=== PATIENT | female | born 1980 | race Caucasian/White ===

== ENCOUNTER 2019-10-21 19:55 | Inpatient (IN) | payer BC ==
[~2019-10-21] VITALS: Ht 160 cm; Wt 81.8 kg
[2019-10-21] MEDS ORDERED: PRENATAL TABLE1 EAC2 PO (20:17)
[2019-10-21] MEDS ORDERED: PANT20 PO (20:17)
[2019-10-21 20:44] LABS: BASOPHILS ABSOLUTE AUTO 0.01 K/mm3 (0.00-0.23); BASOPHILS PERCENT AUTO 0 % (0-2); EOSINOPHILS ABSOLUTE AUTO 0.07 K/mm3 (0.00-0.68); EOSINOPHILS PERCENT AUTO 1 % (0-6); Hematocrit 35.5 % (33.0-51.0); Hemoglobin 11.7 g/dL (11.5-16.0); IMMATURE GRAN ABSOLUTE AUTO 0.05 K/mm3 (0.00-0.10); IMMATURE GRAN PERCENT AUTO 1 % (0-1); LYMPHOCYTES ABSOLUTE AUTO 0.65 K/mm3 (0.84-5.20); LYMPHOCYTES PERCENT AUTO 10 % (21-46); MONOCYTES ABSOLUTE AUTO 0.72 K/mm3 (0.16-1.47); MONOCYTES PERCENT AUTO 11 % (4-13); Mean Corpuscular HGB 31.5 pg (26.0-34.0); Mean Corpuscular Volume 95 fL (80-100); Mean Platelet Volume 11.4 fL (9.1-12.4); NEUTROPHILS ABSOLUTE AUTO 4.89 K/mm3 (1.96-9.15); NEUTROPHILS PERCENT AUTO 76 % (41-73); Platelet Count 142 K/mm3 (150-400); RDW Coefficient Variation 15.2 % (11.7-14.2); RDW Standard Deviation 53.2 fL (35.1-46.3); Red Blood Cell Count 3.72 M/mm3 (3.80-5.20); White Blood Cell Count 6.39 K/mm3 (4.00-11.30)
--- NOTE | 2019-10-22 18:27 | NUR ---
CONSULT. BABY IS LESS THAN 12 HOURS OLD AND MOM IS HAVING PROBLEMS GETTING HIM TO LATCH. TRIED TO COORDINATE HIS SUCK ON MY FINGER, HOLDING TONGUE FAR BACK IN MOUTH, COORDINATES BRIEFLY WITH MINIMAL SUCTION. MOM ABLE TO SELF EBM WELL AND IS HANDLING HIM WELL. INSTRUCT IN CHANGES TO EXPECT DURING THE FIRST WEEK WITH FEEDINGS AND WITH BABY AND REFERRED TO [facility] AND [facility] FOR PHOTOS AND INFORMATION. QUESTIONS ANSWERED.
[2019-10-23 05:26] LABS: BASOPHILS ABSOLUTE AUTO 0.01 K/mm3 (0.00-0.23); BASOPHILS PERCENT AUTO 0 % (0-2); EOSINOPHILS PERCENT AUTO 2 % (0-6); Hematocrit 32.6 % (33.0-51.0); Hemoglobin 10.8 g/dL (11.5-16.0); IMMATURE GRAN ABSOLUTE AUTO 0.05 K/mm3 (0.00-0.10); IMMATURE GRAN PERCENT AUTO 1 % (0-1); LYMPHOCYTES ABSOLUTE AUTO 0.69 K/mm3 (0.84-5.20); LYMPHOCYTES PERCENT AUTO 11 % (21-46); MONOCYTES PERCENT AUTO 10 % (4-13); Mean Corpuscular HGB 31.3 pg (26.0-34.0); Mean Corpuscular HGB Conc 33.1 g/dL (31.5-36.5); Mean Corpuscular Volume 95 fL (80-100); Mean Platelet Volume 11.5 fL (9.1-12.4); NEUTROPHILS ABSOLUTE AUTO 4.73 K/mm3 (1.96-9.15); NEUTROPHILS PERCENT AUTO 77 % (41-73); Platelet Count 120 K/mm3 (150-400); RDW Coefficient Variation 15.1 % (11.7-14.2); RDW Standard Deviation 52.3 fL (35.1-46.3); Red Blood Cell Count 3.45 M/mm3 (3.80-5.20); White Blood Cell Count 6.18 K/mm3 (4.00-11.30)
[2019-10-23] MEDS ORDERED: IBUP800 PO (13:21)
--- NOTE | 2019-10-23 20:32 | NUR ---
DC NOTE. VSS. PAIN WELL CONTROLLED. CARING FOR NB AND SELF INDEPENDENTLY. DC INSTRUCTIONS GIVEN, NO QUESTIONS AT THIS TIME. PT AMBULATED OFF UNIT W/ NO ASSISTANCE.
== END 2019-10-23 20:05 | disposition home or self-care (01) | DRG 807 ==
LOC: BC 19:55
PROVIDERS: ADMIT Nurse Practitioner Obstetrics & Gynecology
PROC: 3E0P7VZ Introduction of Hormone into Female Reproductive, Via Natural or Artificial Opening (ICD-10-PCS; 2019-10-21)
PROC: 10E0XZZ Delivery of Products of Conception, External Approach (ICD-10-PCS; principal; 2019-10-22)
PROC: 0HQ9XZZ Repair Perineum Skin, External Approach (ICD-10-PCS; 2019-10-22)
PROC: 10907ZC Drainage of Amniotic Fluid, Therapeutic from Products of Conception, Via Natural or Artificial Opening (ICD-10-PCS; 2019-10-22)
PROC: 3E033VJ Introduction of Other Hormone into Peripheral Vein, Percutaneous Approach (ICD-10-PCS; 2019-10-22)
PROC: 3E0R3BZ Introduction of Anesthetic Agent into Spinal Canal, Percutaneous Approach (ICD-10-PCS; 2019-10-22)
DX: O69.81X0 Labor and delivery complicated by cord around neck, without compression, not applicable or unspecified (principal); Z37.0 Single live birth; O70.0 First degree perineal laceration during delivery; Z3A.39 39 weeks gestation of pregnancy
CPT/HCPCS: 36415; 51702; 85025; 86900; 86901; J1885; J2001; J2210; J2590; J3010; J7120

== ENCOUNTER 2023-05-27 12:18 | Observation (INO) | payer OTHER ==
[2023-05-27] VITALS (13 sets, daily range): BP systolic 100–127; BP diastolic 54–92
[~2023-05-27] VITALS: Ht 160 cm; Wt 65.8 kg
[~2023-05-27 12:18] MED LIST: IBUP800 PO; PANT20 PO; PRENATAL TABLE1 EAC2 PO
[2023-05-27 13:06] LABS: BASOPHILS ABSOLUTE AUTO 0.03 K/mm3 (0.00-0.23); BASOPHILS PERCENT AUTO 0 % (0-2); EOSINOPHILS ABSOLUTE AUTO 0.03 K/mm3 (0.00-0.68); EOSINOPHILS PERCENT AUTO 0 % (0-6); Hematocrit 38.3 % (33.0-51.0); IMMATURE GRAN ABSOLUTE AUTO 0.01 K/mm3 (0.00-0.10); IMMATURE GRAN PERCENT AUTO 0 % (0-1); LYMPHOCYTES PERCENT AUTO 8 % (21-46); MONOCYTES ABSOLUTE AUTO 0.53 K/mm3 (0.16-1.47); MONOCYTES PERCENT AUTO 6 % (4-13); Mean Corpuscular HGB 30.4 pg (26.0-34.0); Mean Corpuscular HGB Conc 33.9 g/dL (31.5-36.5); Mean Corpuscular Volume 90 fL (80-100); Mean Platelet Volume 10.3 fL (9.1-12.4); NEUTROPHILS ABSOLUTE AUTO 7.84 K/mm3 (1.96-9.15); NEUTROPHILS PERCENT AUTO 86 % (41-73); Platelet Count 246 K/mm3 (150-400); RDW Coefficient Variation 12.4 % (11.7-14.2); RDW Standard Deviation 40.6 fL (35.1-46.3); Red Blood Cell Count 4.28 M/mm3 (3.80-5.20); White Blood Cell Count 9.14 K/mm3 (4.00-11.30)
[2023-05-27 13:07] LABS: Source, Urine Clean Catch
[2023-05-27 13:16] LABS: Albumin/Globulin Ratio 1.3 (0.8-1.8); Bilirubin, Total 0.8 mg/dL (0.1-1.0); Bun/Creatinine Ratio 16.4 (12.0-20.0); Calcium, Blood 8.9 mg/dL (8.5-10.1); Creatinine, Blood 0.79 mg/dL (0.40-1.00); Potassium, Blood 4.3 mmol/L (3.5-5.5)
[2023-05-27 13:24] LABS: Appearance, Urine Clear (Clear); Bilirubin, Urine Neg (Neg); Blood, Urine Neg (Neg); Color, Urine Yellow (P-Yellow); Glucose Qualitative, Urine Neg (Neg); Ketones, Urine Neg (Neg); Leukocyte Esterase, Urine 1+ (Neg); Nitrite, Urine Neg (Neg); Protein, Urine Neg (Neg); Urobilinogen, Urine NORM (Normal)
[2023-05-27 14:02] LABS: Amorphous Light (0-Heavy); Bacteria Rare /hpf; Mucus Mod (0-Heavy); Red Blood Cells, Urine Not Seen /hpf (0-2); Squamous Epithelial Cells Few /hpf (Few)
--- NOTE | 2023-05-27 15:50 | NUR ---
History, Chart, Medications and Allergies reviewed before start of procedure. Lungs clear T/O to Auscultation. Patient confirms NPO status and agrees with scheduled surgery. Pre-Op teaching done. Pt verbalizes understanding.
--- NOTE | 2023-05-27 17:58 | NUR ---
ARRIVED FROM PACU VIA SHERIRRONNIE, AWAKE, A&OX4, DENIES ANY NAUSEA, C/O PAIN ON SHOULDERS, LUNGS CLEAR T/O, HRR, CARLOS AT 47-50BPM, PT'S STATES PT'S NORMAL HR IS IN THE 50'S, ABD LAP INCISIONS W/ GAUZE AND OPSITE X3 C/D/I, ICE CHIPS/WATER GIVEN, MONITOR VS AND ANY CHANGES, REPORT TO NOC SHIFT RN.
[2023-05-28 05:19] VITALS: BP 101/52
--- NOTE | 2023-05-28 06:43 | NUR ---
POD 1 S/P LAP APPY. PT VSS T/O NIGHT. ABD SOFT, TENDER TO PALP, UMBILICUS W/SS SHADOWING, OTHER DRESSINGS CDI. PAIN MGD W/TYLENOL AND TORADOL W/REP RELIEF. PT C/O HEADACHE THIS AM, DECLINED ADDITIONAL PAIN MEDS. PT MARIA FERNANDA PO, DENIED N/V, REP NO FLATUS YET, IS VOIDING URINE W/O DIFFICULTY. PT UP OOB W/SBA, MARIA FERNANDA WELL.
[2023-05-28 07:38] VITALS: BP 94/52
[2023-05-28] MEDS ORDERED: HYDR1TAB94 PO (10:52)
--- NOTE | 2023-05-28 12:45 | NUR ---
FIRE SAFETY FIRE SAFETY ASSESSMENT AND EDUCATION DONE, VERBALIZED UNDERSTANDING, PT DENIES HX OF SMOKING, NO IGNITION SOURCES IDENTIFIED, PT DENIES HAVING ANY IGNITION SOURCES IN ROOM.
--- NOTE | 2023-05-28 14:46 | NUR ---
PT HAS AMBULATED DOWN THE HALLS TODAY, TOLERATED WELL, TOLERATED REGULAR DIET WELL, REPORTS HAVING ADEQUATE PAIN CONTROL WITH [facility], DC INSTRUCTIONS GIVEN, VERBALIZED UNDERSTANDING.
== END 2023-05-28 14:45 | disposition home or self-care (01) ==
LOC: ER 12:18 → SURS 12:19
PROVIDERS: Student in an Organized Health Care Education/Training Program; ADMIT Surgery
PROC: 0DTJ4ZZ Resection of Appendix, Percutaneous Endoscopic Approach (ICD-10-PCS; principal; 2023-05-27 16:00)
DX: K35.80 Unspecified acute appendicitis (principal)
CPT/HCPCS: 74177; 80053; 81001; 81025; 83690; 85025; 96361; 96365-59; 96375; 96376; 99284-25; A9270; C9113; G0378; J0295; J0330; J1100; J1170; J1650; J1885; J2250; J2405; J2704; J3010; J7120; Q9967

== ENCOUNTER 2023-06-24 09:57 | Inpatient (IN) | payer OTHER ==
[~2023-06-24] VITALS: Ht 162.6 cm; Wt 71.0 kg
[~2023-06-24 09:57] MED LIST changes: +HYDR1TAB94 PO
[2023-06-25] VITALS (21 sets, daily range): BP systolic 101–122; BP diastolic 54–68
--- NOTE | 2023-06-25 08:04 | NUR ---
Ambulatory in Day Surgery. Pre-Op teaching done. Pt verbalizes understanding. Patient confirms NPO status and agrees with scheduled surgery. History, Chart, Medications and Allergies reviewed before start of procedure. Patient reports completing Chlorhexadine shower X2 prior to admission to hospital. Surgical site prepped with 2% Chlorhexidine cloth wipe. Lungs clear T/O to Auscultation.
--- NOTE | 2023-06-25 12:40 | NUR ---
ARRIVAL TO UNIT VIA GOURNEY; SLID TO HOSPT BED EASILY. ASSESSMENT CHARTED. PLEASANT & ORIENTED. DENIES NAUSEA BUT REPORTS BEING NERVOUS TO TRY MUCH. ICE CHIPS GIVEN; WILL ALLOW SIPS IF NO NAUSEA. DENIES PAIN.
[2023-06-25 13:03] LABS: Hematocrit 34.7 % (33.0-51.0); Hemoglobin 11.7 g/dL (11.5-16.0)
--- NOTE | 2023-06-25 18:25 | NUR ---
SHIFT SUMMARY PT HAS BEEN DROWSY POST OP; SLEEPING MOSTLY, BUT AWAKENS EASILY TO NAME. MORE ALERT WITHIN THE LAST HOUR & HAVING SMALL CONVERSATIONS. STATES ABD PAIN IS MINIMAL TO NONE & ONLY C/O SHOULDER PAINS FROM GAS. K-PAD GIVEN & REPORTS SOME RELIEF. STATES SHE WANTS TO HOLD OFF ON TYLENOL FOR NOW UNTIL SHE FEELS LIKE DRINKING MORE LQ's. HASN'T BEEN OOB BUT KNOWS THE BENEFITS & WILL BE WILLING.
[2023-06-26 04:17] VITALS: BP 106/56
[2023-06-26 05:02] LABS: BASOPHILS ABSOLUTE AUTO 0.01 K/mm3 (0.00-0.23); BASOPHILS PERCENT AUTO 0 % (0-2); EOSINOPHILS ABSOLUTE AUTO 0.02 K/mm3 (0.00-0.68); EOSINOPHILS PERCENT AUTO 0 % (0-6); Hematocrit 31.8 % (33.0-51.0); Hemoglobin 10.5 g/dL (11.5-16.0); IMMATURE GRAN ABSOLUTE AUTO 0.01 K/mm3 (0.00-0.10); IMMATURE GRAN PERCENT AUTO 0 % (0-1); LYMPHOCYTES ABSOLUTE AUTO 0.75 K/mm3 (0.84-5.20); LYMPHOCYTES PERCENT AUTO 13 % (21-46); MONOCYTES ABSOLUTE AUTO 0.66 K/mm3 (0.16-1.47); MONOCYTES PERCENT AUTO 11 % (4-13); Mean Corpuscular HGB 30.6 pg (26.0-34.0); Mean Corpuscular Volume 93 fL (80-100); Mean Platelet Volume 10.5 fL (9.1-12.4); NEUTROPHILS ABSOLUTE AUTO 4.55 K/mm3 (1.96-9.15); NEUTROPHILS PERCENT AUTO 76 % (41-73); Platelet Count 181 K/mm3 (150-400); RDW Coefficient Variation 12.2 % (11.7-14.2); RDW Standard Deviation 41.5 fL (35.1-46.3); Red Blood Cell Count 3.43 M/mm3 (3.80-5.20)
[2023-06-26 06:13] LABS: Bun/Creatinine Ratio 7.1 (12.0-20.0); Calcium, Blood 8.2 mg/dL (8.5-10.1); Creatinine, Blood 0.7 mg/dL (0.40-1.00); Magnesium, Blood 1.8 mg/dL (1.6-2.4); Phosphorus, Blood 2.9 mg/dL (2.5-4.9); Potassium, Blood 4.1 mmol/L (3.5-5.5)
--- NOTE | 2023-06-26 07:21 | NUR ---
POD 1 S/P HEMICOLECTOMY. PT VSS T/O NIGHT. INCISIONS CDI. 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 PT MARIA FERNANDA SIPS CL PO, DENIED N/V, BT HYPO, PT REP NO FLATUS YET. IVF CONT PER ORDERS. HENRY DRNG CLEAR YELLOW URINE. IVF CONT PER ORDERS.
[2023-06-26 07:50] VITALS: BP 105/66
--- NOTE | 2023-06-26 13:30 | NUR ---
"Spiritual Care | Pt. Request Pt. is awake in bed and welcomes my visit. Spouse and friends are present. Pt. is pleasant. Facilitate a short life review and establish rapport. Spouse is an employee of this hospital. Pt. displays evidenc of being enganed, aware, and confidant in her recovery. Family identifies as LDS and welcomes prayer. Prayed for Pt. Pt. and spouse verbalize gratitude for the spiritual care visit."
--- NOTE | 2023-06-26 14:33 | NUR ---
PT UPDATE TOLERATING CLEAR LQ's. PASSING GAS & LIQUID BM x 2. VOIDING EASILY. AMBULATING HALLWAY x 2 (GOAL OF 3 TIMES TODAY). PAIN MANAGED w/ HEAD PACKAGER & SCHED TYLENOL. DISCUSSED w/ DR PEREZ & PLANS MADE TO ADV DIET TO FULL LQ.
[2023-06-26 15:34] VITALS: BP 101/59
--- NOTE | 2023-06-26 17:45 | NUR ---
SHIFT SUMMARY TOLERATING FULL LQ's. PAIN WELL CONTROLLED. PASSING GAS & LIQUID STOOL. PLEASANT & COOPERATIVE.
[2023-06-26 20:19] VITALS: BP 120/56
[2023-06-26 23:08] VITALS: BP 96/59
[2023-06-27 05:00] VITALS: BP 107/52
--- NOTE | 2023-06-27 05:20 | NUR ---
SHIFT SUMMARY POD1 RIGHT HEMICOLECTOMY. X5 INCISIONS ARE C/D/I. VSS. PT SLEPT ON AND OFF T/O THE NIGHT. PT UTILIZED MANAGER CORPORATE RESPONSIBILITY T/O THE NIGHT AND TYLENOL FOR PAIN CONTOL. PT C/O A HEADACHE MORE THAN ABD PAIN. PT VOIDING W/O DIFFICULTY AND PASSING LOOSE STOOLS. TOLLERATING PO INTAKE. PT C/O MILD NAUSEA THIS AM WITH AMBULATION, UNDECIDIED IF SHE NEEDS NAUSEA MEDICATION YET. NO EMESIS NOTED. PLAN TO ADVANCE PTS DIET THIS AM AND POSSIBLY D/C HOME, NO IGNITION SOURCE NOTED
[2023-06-27 05:26] LABS: BASOPHILS ABSOLUTE AUTO 0.02 K/mm3 (0.00-0.23); BASOPHILS PERCENT AUTO 0 % (0-2); EOSINOPHILS ABSOLUTE AUTO 0.23 K/mm3 (0.00-0.68); EOSINOPHILS PERCENT AUTO 5 % (0-6); Hematocrit 31.2 % (33.0-51.0); Hemoglobin 10.4 g/dL (11.5-16.0); IMMATURE GRAN ABSOLUTE AUTO 0.01 K/mm3 (0.00-0.10); IMMATURE GRAN PERCENT AUTO 0 % (0-1); LYMPHOCYTES ABSOLUTE AUTO 0.87 K/mm3 (0.84-5.20); LYMPHOCYTES PERCENT AUTO 17 % (21-46); MONOCYTES ABSOLUTE AUTO 0.51 K/mm3 (0.16-1.47); MONOCYTES PERCENT AUTO 10 % (4-13); Mean Corpuscular HGB 31.5 pg (26.0-34.0); Mean Corpuscular HGB Conc 33.3 g/dL (31.5-36.5); Mean Corpuscular Volume 95 fL (80-100); Mean Platelet Volume 10.4 fL (9.1-12.4); NEUTROPHILS ABSOLUTE AUTO 3.46 K/mm3 (1.96-9.15); NEUTROPHILS PERCENT AUTO 68 % (41-73); Platelet Count 163 K/mm3 (150-400); RDW Coefficient Variation 12.3 % (11.7-14.2); RDW Standard Deviation 42.9 fL (35.1-46.3)
[2023-06-27 05:42] LABS: Bun/Creatinine Ratio 6.7 (12.0-20.0); Calcium, Blood 7.9 mg/dL (8.5-10.1); Creatinine, Blood 0.74 mg/dL (0.40-1.00)
[2023-06-27 07:15] VITALS: BP 105/51
[2023-06-27] MEDS ORDERED: Acetaminophen650 M1 PO (16:28)
[2023-06-27] MEDS ORDERED: IBUP600 PO (16:30)
--- NOTE | 2023-06-27 18:03 | NUR ---
DISCHARGE PT DISCHARGED HOME FROM UNIT AT APROX 1704. PT AND GIVEN WRITTEN AND VERBAL DC INSTRUCTIONS. PT VERBALIZED UNDERSTANDING. IV REMOVED, TOLERATED WELL. WC TO CAR.
== END 2023-06-27 17:05 | disposition home or self-care (01) | DRG 331 ==
LOC: SURS 06-25 06:13 → PRE IP 06-25 07:30 → SURS 06-25 12:38
PROVIDERS: ADMIT Surgery
PROC: 8E0W4CZ Robotic Assisted Procedure of Trunk Region, Percutaneous Endoscopic Approach (ICD-10-PCS; 2023-06-25)
PROC: 0DTF4ZZ Resection of Right Large Intestine, Percutaneous Endoscopic Approach (ICD-10-PCS; principal; 2023-06-25 07:30)
DX: C18.1 Malignant neoplasm of appendix (principal); Z90.49 Acquired absence of other specified parts of digestive tract; Z98.890 Other specified postprocedural states
CPT/HCPCS: 36415; 80048; 83735; 84100; 85014; 85018; 85025; 86850; 86900; 86901; A9270; J0690; J1100; J1644; J1650; J2250; J2405; J2704; J3010; J7120

== ENCOUNTER 2023-06-24 10:24 | Day surgery (SDC) | payer OTHER ==
[2023-06-24] VITALS (23 sets, daily range): BP systolic 78–130; BP diastolic 48–76
[~2023-06-24] VITALS: Ht 167.6 cm; Wt 70.4 kg
--- NOTE | 2023-06-24 12:06 | NUR ---
06/24/23 1206 Noemy Gomes HISTORY, CHART, MEDICATIONS AND ALLERGIES REVIEWED BEFORE START OF PROCEDURE. PATIENT CONFIRMS NPO STATUS AND AGREES WITH SCHEDULED PROCEDURE. 3-LEAD EKG REVIEWED WITH PHYSICIAN PRIOR TO START OF PROCEDURE. MONITOR INTACT WITH CONTINUOUS PULSE OXIMETRY,CAPNOGRAPHY, 3-LEAD EKG, INTERMITTENT BP. SUPPLEMENTAL O2 TO BE TITRATED THROUGHOUT PROCEDURE TO MAINTAIN O2 SATURATION ABOVE 90%. PATIENT DETERMINED TO BE ASA APPROPRIATE FOR PROPOFOL SEDATION PRIOR TO START OF PROCEDURE BY DR. PEREZ.
--- NOTE | 2023-06-24 13:23 | NUR ---
Discharge instructions reviewed with patient. Patient verbalizes understanding. Copy given to patient to take home. Patient States Post-Procedure ride home has been arranged. Discharged via wheelchair to private car for ride home.
== END 2023-06-24 13:17 | disposition home or self-care (01) ==
LOC: ORSCMMR 10:24 → ORD 12:00 → ORSCMMR 12:00
PROVIDERS: Surgery
PROC: 0DBM8ZX Excision of Descending Colon, Via Natural or Artificial Opening Endoscopic, Diagnostic (ICD-10-PCS; principal; 2023-06-24 12:00)
DX: C18.1 Malignant neoplasm of appendix (principal); D12.4 Benign neoplasm of descending colon; K64.8 Other hemorrhoids; K64.4 Residual hemorrhoidal skin tags; R97.1 Elevated cancer antigen 125 [CA 125]; R97.8 Other abnormal tumor markers; R97.0 Elevated carcinoembryonic antigen [CEA]
CPT/HCPCS: 88305; J2704; J7120

== ENCOUNTER 2023-07-29 10:30 | Inpatient (IN) | payer OTHER ==
[~2023-07-29] VITALS: Wt 67.5 kg
[~2023-07-29 10:30] MED LIST changes: +Acetaminophen650 M1 PO; +IBUP600 PO
[2023-07-29 10:43] VITALS: BP 112/66
[2023-07-29 11:43] LABS: Hematocrit 35.8 % (33.0-51.0); Hemoglobin 12.4 g/dL (11.5-16.0); Mean Corpuscular HGB 30.4 pg (26.0-34.0); Mean Corpuscular HGB Conc 34.6 g/dL (31.5-36.5); Mean Corpuscular Volume 88 fL (80-100); Mean Platelet Volume 10.1 fL (9.1-12.4); Platelet Count 218 K/mm3 (150-400); RDW Coefficient Variation 12.1 % (11.7-14.2); RDW Standard Deviation 38.6 fL (35.1-46.3); Red Blood Cell Count 4.08 M/mm3 (3.80-5.20); White Blood Cell Count 8.02 K/mm3 (4.00-11.30)
[2023-07-29 12:09] LABS: BAND PERCENT MAN 20 % (0-8); BASOPHILS PERCENT MAN 0 % (0-2); EOSINOPHILS PERCENT MAN 0 % (0-6); LYMPHOCYTES ABSOLUTE MAN 0.88 K/mm3 (0.84-5.20); LYMPHOCYTES PERCENT MAN 11 % (21-46); MONOCYTES ABSOLUTE MAN 0.32 K/mm3 (0.16-1.47); MONOCYTES PERCENT MAN 4 % (4-13); NEUTROPHILS ABSOLUTE MAN 6.81 K/mm3 (1.96-9.15); SEG NEUTROPHILS PERCENT MAN 65 % (41-73); TOTAL CELLS COUNTED 100
[2023-07-29 12:11] LABS: Albumin, Blood 2.9 g/dL (3.4-5.0); Bilirubin, Total 0.8 mg/dL (0.1-1.0); Bun/Creatinine Ratio 13.8 (12.0-20.0); Calcium, Blood 8.2 mg/dL (8.5-10.1); Creatinine, Blood 0.8 mg/dL (0.40-1.00); Globulin, Blood 2.9 g/dL (2.2-4.0); Phosphorus, Blood 3.5 mg/dL (2.5-4.9); Potassium, Blood 3.4 mmol/L (3.5-5.5); Total Protein, Blood 5.8 g/dL (6.4-8.2)
[2023-07-29 14:36] VITALS: BP 110/50
[2023-07-29 17:45] LABS: Adenovirus F 40/41 Not Detected (NOT DETECT); Astrovirus Not Detected (NOT DETECT); Campylobacter Sp Not Detected (NOT DETECT); Cryptosporidium Not Detected (NOT DETECT); Cyclospora Cayetanensis Not Detected (NOT DETECT); E. Coli O157 Not Detected (NOT DETECT); Entamoeba Histolytica Not Detected (NOT DETECT); Enteroaggregative E. coli-EAEC Not Detected (NOT DETECT); Enteropathogenic E. coli-EPEC Not Detected (NOT DETECT); Enterotoxigenic E. coli-ETEC Not Detected (NOT DETECT); Giardia Lamblia Not Detected (NOT DETECT); Norovirus GI/GII Not Detected (NOT DETECT); Plesiomonas Shigelloides Not Detected (NOT DETECT); Rotavirus A Not Detected (NOT DETECT); Salmonella Sp Not Detected (NOT DETECT); Sapovirus Not Detected (NOT DETECT); Shiga Toxin-prod E. coli-STEC Not Detected (NOT DETECT); Shigella/Enteroin E. coli-EIEC Not Detected (NOT DETECT); Vibrio Cholerae Not Detected (NOT DETECT); Vibrio Sp Not Detected (NOT DETECT); Yersinia Enterocolitica Not Detected (NOT DETECT)
--- NOTE | 2023-07-29 19:01 | NUR ---
SHIFT SUMMARY PT HAS SHOWN IMPROVEMENT SINCE ADMIT. PT REPORTS LESS LOOSE STOOLS SINCE FLUID BOLUS. FLUIDS RUNNING 125/HR. PT TOLERATING SM CLEAR LIQUIDS WITH NO N/V. ORAL ABX.
[2023-07-29 19:47] VITALS: BP 107/63
[2023-07-30 02:35] VITALS: BP 100/55
[2023-07-30 07:30] VITALS: BP 109/56
--- NOTE | 2023-07-30 07:35 | NUR ---
PT VSS T/O NIGHT. PT MARIA FERNANDA SMALL AMT CL PO, REP INC ABD CRAMPING AFTER EATING JELLO. PT ALSO REPORTS NAUSEA R/T ABX, ZOFRAN GIVEN W/REPORTED RELIEF. PT REP INC IN BM SINCE APPX MIDNIGHT, REP APPX 10 LIQ BM. IVF CONT PER ORDERS. DR PEREZ UPDATED THIS AM. PT AMB INDEP IN ROOM, MARIA FERNANDA WELL, DENIES DIZZINESS WHEN UP.
--- NOTE | 2023-07-30 15:01 | NUR ---
PT C/O PAIN IN EPIGASTRIC AREA RADIATING THROUGH TO HER BACK. STATES IT COMES AND GOES. DOES REPORT SHE WAS DOING LUNGES IN THE ROOM PRIOR TO RN ENTERING ROOM. VSS 105/51, HR 56, RR 14. MD NOTIFIED, ORDER TO GIVE ADDITIONAL DOSE OF PEPCID NOW AND CONTINUE TO MONITOR VS.
--- NOTE | 2023-07-30 18:46 | NUR ---
SHIFT SUMMARY PT HAS CONTINUED TO SHOW IMPROVEMENT T/O SHIFT. TOLERATED CLEAR LIQUIDS SO ADVANCED TO REGULAR DIET. PT EDUCATED ON TAKING IT SLOW. PT MEDICATED WITH ZOFRAN ALONG WITH PO ABX SHE FEELS THEY HAVE CAUSE NAUSEA. PT AMBULATING IN ROOM INDEPENDENTLY. EPIGASTRIC PAIN RESOLVED WITH PEPCID.
[2023-07-30 20:03] VITALS: BP 102/60
[2023-07-31 04:21] VITALS: BP 100/54
[2023-07-31 05:10] LABS: Magnesium, Blood 1.8 mg/dL (1.6-2.4)
--- NOTE | 2023-07-31 06:36 | NUR ---
PT VSS T/O NIGHT. PT REP LESS FREQ BM. REP ONLY 1 BM SINCE MIDNIGHT. PT MARIA FERNANDA SMALL AMT PO, REP MILD NAUSEA THIS AM. ZOFRAN GIVEN W/ABX R/T NAUSEA. PT DENIED ABD PAIN. IVF CONT PER ORDERS.
[2023-07-31 06:49] LABS: Bun/Creatinine Ratio 3.8 (12.0-20.0); Calcium, Blood 7.6 mg/dL (8.5-10.1); Creatinine, Blood 0.79 mg/dL (0.40-1.00); Phosphorus, Blood 2.6 mg/dL (2.5-4.9)
[2023-07-31 08:29] VITALS: BP 97/47
[2023-07-31] MEDS ORDERED: VISBIOME 112.51 EACH PO (11:37)
[2023-07-31] MEDS ORDERED: VANCOCIN HCL125 MG PO (11:37)
[2023-07-31 14:05] LABS: Potassium, Blood 3.5 mmol/L (3.5-5.5)
--- NOTE | 2023-07-31 18:39 | NUR ---
PT REPORTS ABLE TO TOLERATE FOOD BETTER AT LUNCH, DENIES ANY NAUSEA, REPORTS TOLERATING PO FLUIDS WELL, DC'D HOME THIS EVENING, DC INSTRUCTIONS GIVEN, VERBALIZED UNDERSTANDING.
== END 2023-07-31 18:20 | disposition home or self-care (01) | DRG 373 ==
LOC: SURS 10:30
PROVIDERS: ADMIT Surgery
DX: A04.72 Enterocolitis due to Clostridium difficile, not specified as recurrent (principal); E86.0 Dehydration; Z90.49 Acquired absence of other specified parts of digestive tract; Z79.899 Other long term (current) drug therapy
CPT/HCPCS: 36415; 74177; 80048; 80053; 83735; 84100; 85025; 87324; 87507; A9270; J1650; J2405; J7120; Q9967

== ENCOUNTER 2025-05-12 09:09 | Emergency (ER) | payer OTHER ==
[~2025-05-12] VITALS: Ht 162.6 cm; Wt 65.8 kg
[~2025-05-12 09:09] MED LIST changes: +CAPE500; +DICY20 PO; +PROM12.5S PR; +VANCOCIN HCL125 MG PO; +VISBIOME 112.51 EACH PO
[2025-05-12] MEDS ORDERED: NS 1,000 ML IV SCH (10:00)
[2025-05-12] MEDS ORDERED: Ondansetron HCl 2 MG / ML 2ML Vial IV ONE (11:10)
[2025-05-12] MEDS ORDERED: Ketorolac Tromethamine 15mg Vial IV ONE (11:10)
[2025-05-12 11:29] LABS: BASOPHILS ABSOLUTE AUTO 0.02 K/mm3 (0.00-0.23); BASOPHILS PERCENT AUTO 0 % (0-2); EOSINOPHILS ABSOLUTE AUTO 0.01 K/mm3 (0.00-0.68); EOSINOPHILS PERCENT AUTO 0 % (0-6); Hematocrit 36.2 % (33.0-51.0); Hemoglobin 11.9 g/dL (11.5-16.0); IMMATURE GRAN ABSOLUTE AUTO 0.01 K/mm3 (0.00-0.10); IMMATURE GRAN PERCENT AUTO 0 % (0-1); LYMPHOCYTES ABSOLUTE AUTO 0.45 K/mm3 (0.84-5.20); LYMPHOCYTES PERCENT AUTO 8 % (21-46); MONOCYTES ABSOLUTE AUTO 0.40 K/mm3 (0.16-1.47); MONOCYTES PERCENT AUTO 7 % (4-13); Mean Corpuscular HGB Conc 32.9 g/dL (31.5-36.5); Mean Corpuscular Volume 93 fL (80-100); NEUTROPHILS ABSOLUTE AUTO 4.63 K/mm3 (1.96-9.15); NEUTROPHILS PERCENT AUTO 84 % (41-73); NRBC ABSOLUTE 0.00 K/mm3 (0.00-0.02); NRBC Auto 0.0 /100 WBC (0.0-0.2); Platelet Count 196 K/mm3 (150-400); RDW Coefficient Variation 12.3 % (11.7-14.2); RDW Standard Deviation 42.5 fL (35.1-46.3)
[2025-05-12 11:57] LABS: Alanine Aminotransfer (ALT/SGP 21.0 U/L (12-78); Albumin, Blood 3.7 g/dL (3.4-5.0); Albumin/Globulin Ratio 1.3 (0.8-1.8); Anion Gap 7.0 mmol/L (3-11); Aspartate Aminotrans (AST/SGOT 14.0 U/L (12-37); Bilirubin, Total 1.0 mg/dL (0.1-1.0); Blood Urea Nitrogen 13.0 mg/dL (8-24); CO2, Blood 27.0 mmol/L (21-32); Calcium, Blood 8.3 mg/dL (8.5-10.1); Chloride, Blood 103.0 mmol/L (98-108); Creatinine, Blood 0.9 mg/dL (0.40-1.00); Globulin, Blood 2.8 g/dL (2.2-4.0); Glucose, Blood 82.0 mg/dL (70-99); Magnesium, Blood 2.0 mg/dL (1.6-2.4); Potassium, Blood 3.8 mmol/L (3.5-5.5); Sodium, Blood 133.0 mmol/L (136-145); Total Protein, Blood 6.5 g/dL (6.4-8.2)
[2025-05-12 12:53] LABS: Source, Urine Clean Catch
[2025-05-12 13:01] LABS: Bilirubin, Urine Neg (Neg); Glucose Qualitative, Urine Neg (Neg); Ketones, Urine 3+ (Neg); Leukocyte Esterase, Urine 1+ (Neg); Protein, Urine 1+ (Neg); Specific Gravity, Urine 1.010 (1.003-1.022); Urobilinogen, Urine NORM (Normal)
[2025-05-12 13:09] VITALS: BP 109/60
[2025-05-12] MEDS ORDERED: HYDR1TAB94 PO (13:13)
[2025-05-12] MEDS ORDERED: ONDA4ODT MM (13:13)
[2025-05-12 13:24] LABS: Color, Urine Yellow (P-Yellow)
== END 2025-05-12 13:20 | disposition home or self-care (01) ==
LOC: ER 09:09
PROVIDERS: Physician Assistant
DX: N13.2 Hydronephrosis with renal and ureteral calculous obstruction (principal); Z79.899 Other long term (current) drug therapy
CPT/HCPCS: 74177; 80053; 81001; 83735; 84703; 85025; 87086; 96361; 96374; 96375; 99284-25; J1885; J2405; J7030; Q9967